=== PATIENT | female | born 1955 | race Caucasian/White ===

== ENCOUNTER 2016-05-04 14:04 | Emergency (ER) | payer MEDICAID ==
[~2016-05-04] VITALS: Ht 160 cm; Wt 61.2 kg
[2016-05-04 14:20] VITALS: BP 151/74
[2016-05-04] MEDS ORDERED: NORVASC10 MG PO (14:20)
[2016-05-04] MEDS ORDERED: GLUCOPHAGE500 MG PO (14:20)
[2016-05-04] MEDS ORDERED: ASPIRIN81 M1 PO (14:20)
[2016-05-04] MEDS ORDERED: ZESTRIL20 MG PO (14:20)
[2016-05-04] MEDS ORDERED: ORETIC25 MG PO (14:20)
--- NOTE | 2016-05-04 14:52 | NUR ---
Patient ambulated to bed 02.
--- NOTE | 2016-05-04 14:56 | NUR ---
Dr. Arroyo evaluating patient at bedside.
[2016-05-04] MEDS ORDERED: HYDROcodone/APAP 5/325 MG 1 TAB TAB PO ONE (15:10)
--- NOTE | 2016-05-04 15:12 | NUR ---
AAO TAKEN TO XRAY VIA WHEEL CHAIR BY BILL OF MATERIALS CLERK
--- NOTE | 2016-05-04 15:17 | NUR ---
Patient back from XRAY via wheelchair per tech.
--- NOTE | 2016-05-04 15:30 | NUR ---
PT C/O LEFT SIDED BACK PAIN, VISIBLE BRUISING TO BACK, PT. STATES SHE FELL 04/25/16;. DENIES N/V/D; SKIN IS PINK/WARM/DRY; AAOX4 WITH EVEN AND STEADY GAIT; LUNGS CLEAR BL; HR EVEN AND REGULAR; PT DENIES ANY FEVER, CP, SOB, OR COUGH AT THIS TIME; PATIENT STATES PAIN OF 10/10 AT THIS TIME; VSS; PATIENT POSITIONED FOR COMFORT; HOB ELEVATED; BEDRAILS UP X2; BED DOWN. ER MD MADE AWARE OF PT STATUS.
--- NOTE | 2016-05-04 15:36 | NUR ---
AAO PT AMBULATES TO THE RESTROOM FOR URINE SAMPLE
[2016-05-04 17:20] VITALS: BP 148/75
== END 2016-05-04 17:20 | disposition home or self-care (01) ==
LOC: MED 14:04
DX: S20.212A Contusion of left front wall of thorax, initial encounter (principal); S39.91XA Unspecified injury of abdomen, initial encounter; I10 Essential (primary) hypertension; Z79.82 Long term (current) use of aspirin; W18.39XA Other fall on same level, initial encounter; Y93.89 Activity, other specified; Y92.89 Other specified places as the place of occurrence of the external cause; Y99.8 Other external cause status